=== PATIENT | male | born 1990 | race African-American/Black ===

== ENCOUNTER → 2020-04-14 08:50 | Outpatient (CLI) | payer OTHER, SELFPAY ==
--- NOTE | 2020-04-22 11:20 | PM.PFT.1 ---
Pulmonary Function Test Referral & Results Date Patient Seen: 04/14/20 Requesting provider: Odilon De León Results: The spirometry demonstrates an FVC of 4.66 L which is 86% of predicted. The FEV1 was measured at 3.50 L which is 79% of predicted. The FEV1/FVC ratio was 75 which is 91% of predicted. Following the administration of bronchodilator there was no appreciable change. Lung volumes show an SVC of 4.59 L which is 88% of predicted. The diffusing capacity was measured at 31.90 which is 102% of predicted. The maximum voluntary ventilation was normal Interpretation: This study demonstrates perhaps very mild obstructive lung disease based on minimal reduction FEV1 although FEV1/FVC ratio is normal. There is no evidence of benefit following bronchodilator Otherwise normal PFTs
== END ==
PROVIDERS: Referring Provider Internal Medicine Cardiovascular Disease; Visit Provider Internal Medicine Cardiovascular Disease
DX: R06.02 Shortness of breath (principal); J98.8 Other specified respiratory disorders; R07.89 Other chest pain; R53.82 Chronic fatigue, unspecified; Z87.891 Personal history of nicotine dependence
CPT/HCPCS: 94060; 94726; 94729

== ENCOUNTER → 2020-04-18 15:47 | Outpatient (CLI) | payer OTHER, SELFPAY ==
[2020-04-18 17:49] LABS: COVID19 -Nasal RAPID Negative (Negative)
== END ==
PROVIDERS: Visit Provider Physician Assistant
DX: Z11.59 Encounter for screening for other viral diseases (principal)
CPT/HCPCS: 87635

== ENCOUNTER → 2020-04-19 13:39 | Outpatient (CLI) | payer OTHER, SELFPAY ==
--- NOTE | 2020-04-19 | DI.ECHO.S_ITS ---
[facility] +---------+ : : [address] : : : : [id number] : : : : Phone: [phone]+ Echocardiogram Report + + :Name: MARTHA LORA Study Date: 04/19/2020 Height: 69 in : :[facility] Weight: 185 lb : : Gender: Male BSA: 2.0 m2 : :: 1990 Age: 29 yrs BP: 141/104 mmHg: :Reason For Study: CHEST PAIN : :Ordering Physician: KATIA, : :MARAH Performed By: Kelin Patricia : :Referring: MARAH MONTALVO : + + Interpretation Summary The left ventricle is normal in size and wall thickness. The ejection fraction is estimated to be 50-55%. The right ventricle is mildly dilated. The right ventricular systolic function is normal. There is mild mitral regurgitation. There is mild tricuspid regurgitation. Pulmonary artery pressures cannot be estimated because of the lack of a measurable TR jet velocity but the IVC suggests a CVP of around 8 mmHg. Procedure: A two-dimensional transthoracic echocardiogram with color flow and Doppler was performed. The study quality was technically adequate. There is no prior echocardiogram noted for this patient. The patient was in sinus bradycardia with heart rates between 52-69 bpm during the exam. Left Ventricle: The left ventricle is normal in size and wall thickness. There is no thrombus. Trabeculae near apex are visualized. No thrombus is observed. The ejection fraction is estimated to be 50-55%. There are no focal wall motion abnormalities. Diastolic parameters suggest probable normal left ventricular diastolic function and normal filling pressures. Right Ventricle: The right ventricle is mildly dilated. The right ventricular systolic function is normal. Atria: The left atrium is mildly dilated. Right atrial size is normal. There is no Doppler evidence for an interatrial shunt. Mitral Valve: The mitral valve is normal. There is mild mitral regurgitation. Aortic Valve: The aortic valve is trileaflet. The aortic valve opens well. There is no aortic valve stenosis. No aortic regurgitation is present. Tricuspid Valve: The tricuspid valve is normal. There is mild tricuspid regurgitation. Pulmonary artery pressures cannot be estimated because of the lack of a measurable TR jet velocity but the IVC suggests a CVP of around 8 mmHg. Pulmonic Valve: The pulmonic valve is not well seen, but is grossly normal. There is trace pulmonic regurgitation. Great Vessels: The aortic root is normal size. The dimensions of the ascending aorta are normal. The IVC is dilated (diameter is greater than 2.1 cm) yet it collapses greater than 50% with a sniff. This suggests a right atrial pressure of 8 mm Hg. Pericardium/ Pleura There is no pericardial effusion. There is no pleural effusion. MMode/2D Measurements & Calculations LVIDd: 5.3 cm LVOT diam: 2.2 cm LVIDs: 4.0 cm Ao root diam: 3.0 cm FS: 25.5 % asc Aorta Diam: 2.7 cm EPSS: 0.43 cm Ao Arch Diam (Prox Trans): 2.4 cm IVSd: 0.92 cm LVPWd: 1.1 cm LV lou. diameter/BSA (cm/m^2): 2.7 LV sys. diameter/BSA (cm/m^2): 2.0 LA A2 area: 24.2 cm2 RA long axis: 4.9 cm LA A4 area: 20.5 cm2 RA area: 18.4 cm2 LA length (vol): 4.9 cm RA vol: 59.1 ml LA vol: 85.0 ml RA : 29.6 ml/m2 LA vol index: 42.5 ml/m2 IVC diam: 2.1 cm RVD1 (basal): 4.4 cm TAPSE: 2.6 cm Doppler Measurements & Calculations Ao V2 max: 107.4 cm/sec LVOT Max Rick: 70.8 cm/sec Ao V2 mean: 74.1 cm/sec LV V1 max P.0 mmHg Ao max P.6 mmHg LV V1 VTI: 15.1 cm Ao mean P.5 mmHg NICOLE(I,D): 2.4 cm2 Ao V2 VTI: 24.2 cm NICOLE(V,D): 2.6 cm2 sev ratio: 0.62 NICOLE indexed to BSA (cm^2/m^2): 1.2 MV E max rick: 60.4 cm/sec PA V2 max: 68.3 cm/sec MV A max rick: 33.6 cm/sec PA V2 mean: 44.2 cm/sec MV E/A: 1.8 PA mean P.91 mmHg Med Peak E' Rick: 8.9 cm/sec PA pr(Accel): 25.9 mmHg E/E' med: 6.8 Lat Peak E' Rick: 15.5 cm/sec E/E' lat: 3.9 E/e' average: 5.3 MV dec time: 0.17 sec SV(LVOT): 59.4 ml Reading Physician:05:59 PM
--- NOTE | 2020-04-19 17:47 | DI.NM.S_ITS ---
DATE OF SERVICE: 04/19/2020 PROCEDURE: Exercise stress test report. DATE OF STUDY: 04/19/2020. INDICATIONS: Chest pain. EXERCISE STRESS TEST: The patient underwent exercise stress test under the supervision of an attending staff. He walked on Epi protocol for 16 minutes 21 seconds, achieved 94% of target heart rate with normal blood pressure response, 16.9 METS of workload and functional aerobic impairment -10%. No chest discomfort or anginal symptoms. Baseline rhythm was sinus. At peak exercise, no convincing ischemic changes. Rare PVCs without any ventricular tachycardia. CONCLUSION: Exercise stress test is negative for inducible ischemia. Excellent exercise tolerance. He walked on Epi protocol for 16 minutes and 21 seconds with 16.9 METS of workload and functional aerobic impairment -10%. No ischemic changes. No significant arrhythmias. Normal hemodynamic response. Overall this is a low-risk exercise perfusion study. SimmonsSuhail dimas - John/timi doc#: [id number]/job#: [id number] dd: 04/19/2020 16:58:00 dt: 04/19/2020 17:26:00 DICTATING /COPIES TO: Odilon De León MD COPIES MNE: EMEKA;
== END ==
PROVIDERS: Referring Provider Internal Medicine Cardiovascular Disease; Visit Provider Internal Medicine Cardiovascular Disease
DX: I08.1 Rheumatic disorders of both mitral and tricuspid valves (principal); R07.89 Other chest pain; R53.82 Chronic fatigue, unspecified; R06.02 Shortness of breath
CPT/HCPCS: 93017; 93306

== ENCOUNTER 2023-01-10 13:12 | Emergency (ER) | payer OTHER, SELFPAY ==
[2023-01-10 12:35] VITALS: BP 133/75; PULSE 67; RESP 14; TEMP 36.7; O2SAT 99; BMI 28.8
--- NOTE | 2023-01-10 13:24 | DI.RAD.S_ITS ---
PROCEDURE: XR CHEST 1V INDICATIONS: chest pain TECHNIQUE: One view of the chest was acquired. COMPARISON: None. FINDINGS: Surgical changes and devices: None. Lungs and pleura: Lungs are clear. No pleural effusions or pneumothorax. Mediastinum: Mediastinal contours appear normal. Heart size is normal. Bones and chest wall: No suspicious bony lesions. Overlying soft tissues appear unremarkable. IMPRESSION: Portable chest within normal limits for age. Dictated by: Petra Roberto M.D. on 01/10/2023 at 14:08 Approved by: Petra Roberto M.D. on 01/10/2023 at 14:09
[2023-01-10 13:42] LABS: Add Manual Diff / Slide Review NO; Basophils Absolute Auto 0 /uL (0-100); Basophils Percent Auto 0.8 % (0-2); Eosinophils Absolute Auto 100 /uL (0-450); Eosinophils Percent Auto 2.9 % (2-4); Hematocrit 45.4 % (41-53); Hemoglobin 15.3 g/dL (13.5-17.5); Lymphocytes Absolute Auto 1300 /uL (1100-4500); Lymphocytes Percent Auto 41.8 % (25-40); Mean Corpuscular HGB Conc 33.7 % (30-36); Mean Corpuscular Hemoglobin 27.5 PG (26-34); Mean Corpuscular Volume 81.4 fL (80-100); Monocytes Absolute Auto 300 /uL (0-900); Monocytes Percent Auto 10.9 % (3-14); Neutrophils Absolute Auto 1400 /uL (1500-7000); Neutrophils Percent Auto 43.6 % (50-75); Platelet Count 215 X10^3/uL (150-400); Red Blood Cell Count 5.57 X10^6/uL (4.5-5.9); Red Cell Distribution Width 13.8 % (11.6-14.8); White Blood Cell Count 3.2 X10^3/uL (4.5-11.0)
[2023-01-10 13:54] LABS: Alanine Aminotransferase 24 IU/L (<50); Albumin 4.7 g/dL (3.5-5.0); Albumin Globulin Ratio 1.3 (1.0-2.8); Alkaline Phosphatase 77 U/L (38-126); Aspartate Aminotransferase 39 IU/L (17-59); BUN Creatinine Ratio 17.8 (6-22); Bilirubin Total 0.4 mg/dL (0.2-1.3); Blood Urea Nitrogen 19 mg/dL (9-20); Calcium 9.4 mg/dL (8.4-10.2); Carbon Dioxide 26 mmol/L (22-32); Chloride 106 mmol/L (98-107); Creatine Kinase 562 U/L (55-170); Estimated Glomerular Filt Rate > 60 mL/min (>60); Globulin 3.5 g/dL (1.7-4.1); Glucose 76 mg/dL (70-100); HEMOLYSIS 35 (0-50); Lipase 102 U/L (23-300); Magnesium 2.1 mg/dL (1.6-2.3); Potassium 3.9 mmol/L (3.4-5.1); Sodium 141 mmol/L (137-145); Total Protein 8.2 g/dL (6.3-8.2)
[2023-01-10 14:02] LABS: INR 1.1 (0.9-1.3); Prothrombin Time 12.4 SECONDS (10.1-12.7)
[2023-01-10 14:05] LABS: PTT Partial Thromboplastin Tim 36 SECONDS (26-36); Troponin I 0.029 ng/mL (0.01-0.034)
[2023-01-10 19:12] VITALS: BP 134/88; PULSE 76; O2SAT 99
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
[2023-01-10 20:30] LABS: Troponin I 0.033 ng/mL (0.01-0.034)
[2023-01-10 20:48] VITALS: BP 144/93; PULSE 61; O2SAT 100
== END 2023-01-10 20:55 | disposition home or self-care (01) ==
PROVIDERS: Emergency Medicine; Emergency Provider Emergency Medicine
DX: R07.9 Chest pain, unspecified (principal)
CPT/HCPCS: 71045; 80053; 82550; 83690; 83735; 84484; 85025; 85610; 85730; 93005; 99281; 99284

== ENCOUNTER 2023-09-02 16:03 | Emergency (ER) | payer OTHER, SELFPAY ==
[2023-09-02 16:30] VITALS: BP 151/79; PULSE 60; RESP 16; TEMP 36.4; O2SAT 98; BMI 28.8
[2023-09-02 18:47] VITALS: BP 137/82; PULSE 65; RESP 20; O2SAT 100
--- NOTE | 2023-09-02 19:15 | DI.US.S_ITS ---
PROCEDURE: US SCROTUM INDICATIONS: pain worse with lifting TECHNIQUE: Real-time scanning was performed of the scrotum and testicles, with image documentation. Color and pulse Doppler interrogation was performed of both testicles. COMPARISON: None. FINDINGS: Right: Testicle is normal in size at 4.4 x 2.7 x 1.9 cm, and homogenous in echotexture. Epididymis is normal in overall size and morphology. Hyperemia of the epididymis. This involves the epididymal body and tail. No hydrocele or varicoceles. Overlying scrotal skin is normal in thickness. Simple right testicular cyst. No inguinal hernia. Left: Testicle is normal in size at 4.6 x 2.7 x 0.7 cm, and homogeneous in echotexture. Epididymis is normal in overall size and morphology. No hydrocele or varicoceles. Overlying scrotal skin is normal in thickness. Postsurgical changes of prior left inguinal mesh repair. No inguinal hernia. Doppler: Color and pulse Doppler demonstrate normal and symmetric arterial flow in both testicles. IMPRESSION: Findings suggestive of right epididymitis. No evidence for inguinal hernia on either side. Dictated by: Antonio Huitron M.D. on 09/02/2023 at 21:50 Approved by: Antonio Huitron M.D. on 09/02/2023 at 21:52
[2023-09-02] MEDS: KETOROLAC 30 MG/ML VIAL IM (21:59)
--- NOTE | 2023-09-02 21:59 | ED.MALEGU ---
HPI - Male Genitourinary General Chief complaint: Urogenital-Male Stated complaint: genital pain/ HX hernia Time Seen by Provider: 09/02/23 17:39 Source: patient Mode of arrival: Ambulatory History of Present Illness HPI Narrative: 33-year-old male presents for evaluation of 1-1.5 months of right testicle pain. Reports history of hernia in the past, pain is worse with lifting and straining. Denies any penile pain, dysuria, discharge, history of STIs, denies concern for STIs. Related Data Allergies Allergy/AdvReac Type Severity Reaction Status Date / Time No Known Drug Allergies Allergy Verified 09/02/23 16:34 Review of Systems Review of Systems Narrative: See HPI Patient History Social History Smoking Status: Unknown if ever smoked Smoking Status: Unknown if ever smoked alcohol intake frequency: holidays/special occasions only Substance Use Type: does not use Exam Initial Vital Signs Initial Vital Signs: Vital Signs Temperature 97.6 F 09/02/23 16:30 Pulse Rate 60 09/02/23 16:30 Respiratory Rate 16 09/02/23 16:30 Blood Pressure 151/79 H 09/02/23 16:30 Pulse Oximetry 98 09/02/23 16:30 Oxygen Delivery Method Room Air 09/02/23 16:30 Const: Awake, alert, no acute distress, nontoxic appearing GI: Soft, nontender, nondistended, no rebound, no guarding : Operations Label Clerk present, penis normal, cremasteric reflex intact, no lesions, tenderness generalized over right testicle without swelling Skin: Warm, Dry, intact, no rashes Neuro: AO x3, CN II-XII grossly intact, moves all extremities Course Orders Ordered: Discontinued Medications Ketorolac Tromethamine (Ketorolac 30 Mg/Ml Vial) 30 mg IM NOW ONE Stop: 09/02/23 21:54 Last Admin: 09/02/23 21:59 Dose: 30 mg Documented By: NL Vital Signs Vital signs: Vital Signs - 8 hr 09/02/23 22:33 Pulse Rate 54 L Respiratory Rate 16 Blood Pressure 157/92 H Pulse Oximetry 100 Oxygen Delivery Method Room Air MDM - Male Genitourinary Differential Diagnosis Differential diagnosis: Likely urinary tract infection, priapism and urethritis Lab Data Labs: Urine Dip Bedside Urine Glucose Negative Bedside Urine Bilirubin - Negative Bedside Urine Ketone - Negative Urine Specific [place] 1.025 Bedside Urine Occult Blood - Negative Bedside Urine pH 6.0 Bedside Urine Protein - Negative Bedside Urine Urobilinogen - Negative Bedside Urine Nitrite - Negative Bedside Urine Leukocytes - Negative Esterase MDM Narrative Medical decision making narrative: 1+ months of right testicle pain. No obvious physical exam abnormalities, no hernia present. Urinalysis negative for signs of infection, patient denies any concern at all of STIs and declines testing. Ultrasound shows epididymitis. Patient counseled on his results. Recommended urology follow up as well as NSAIDs, supportive underwear, ice as needed for comfort. Discharge Plan Departure Patient Disposition: Home Clinical Impression: Epididymitis Instructions: DI for Epididymitis Activity Restrictions/Additional Instructions: Your ultrasound today showed epididymitis. Take anti-inflammatories such as ibuprofen or Aleve, wear supportive underwear, and you may also apply ice for comfort. Follow up with Urology to monitor your progress. Referrals: Miscellaneous,MD Seth [Primary Care Provider] - Everett Orozco MD [Physician] - Stand Alone Forms: Patient Portal/API
[2023-09-02 22:33] VITALS: BP 157/92; PULSE 54; RESP 16; O2SAT 100
== END 2023-09-02 22:34 | disposition home or self-care (01) ==
PROVIDERS: Emergency Provider Emergency Medicine
DX: N45.1 Epididymitis (principal)
CPT/HCPCS: 76870; 81003; 96372; 99283; J1885